=== PATIENT | female | born 1985 | race Two or more races ===

== ENCOUNTER 2020-05-02 14:15 | Inpatient (IN) | payer OTHER ==
[~2020-05-02] VITALS: Ht 170.2 cm; Wt 3.2 kg
[2020-05-20] MEDS ORDERED: PRENATAL CAPLE1 EAC1 PO (10:42)
== END 2020-05-23 14:57 | disposition home or self-care (01) | DRG 788 ==
LOC: SURG-SUITE 05-20 08:56 → OB/GYN 05-20 08:56 → LDR 05-20 08:56 → OB/GYN 05-20 18:05 → SURG-SUITE 05-20 21:14 → LDR 05-23 14:15 → SURG-SUITE 05-23 14:57
PROVIDERS: ADMIT Obstetrics & Gynecology Maternal & Fetal Medicine; ATTEND Obstetrics & Gynecology Maternal & Fetal Medicine
PROC: 10907ZC Drainage of Amniotic Fluid, Therapeutic from Products of Conception, Via Natural or Artificial Opening (ICD-10-PCS; 2020-05-20)
PROC: 3E033VJ Introduction of Other Hormone into Peripheral Vein, Percutaneous Approach (ICD-10-PCS; 2020-05-20)
PROC: 4A1HXFZ Monitoring of Products of Conception, Cardiac Rhythm, External Approach (ICD-10-PCS; 2020-05-20)
PROC: 10D00Z1 Extraction of Products of Conception, Low, Open Approach (ICD-10-PCS; principal; 2020-05-20 20:00)
DX: O62.1 Secondary uterine inertia (principal); O76 Abnormality in fetal heart rate and rhythm complicating labor and delivery; Z3A.39 39 weeks gestation of pregnancy; Z37.0 Single live birth; Z20.822 Contact with and (suspected) exposure to COVID-19

== ENCOUNTER 2020-05-16 13:57 | Outpatient (CLI) | payer OTHER | END 2020-05-16 16:38 | disposition home or self-care (01) | LOC: NST 13:57 | PROVIDERS: ATTEND Obstetrics & Gynecology Maternal & Fetal Medicine | DX: Z34.83 Encounter for supervision of other normal pregnancy, third trimester (principal) ==